=== PATIENT | female | born 1965 | race Asian ===

== ENCOUNTER 2020-08-22 13:38 | Emergency (ER) | payer OTHER ==
[~2020-08-22] VITALS: Ht 165.1 cm; Wt 68.0 kg
[2020-08-22 13:47] VITALS: TEMP 98.7
[2020-08-22 14:34] LABS: PLATELET COUNT 126 K/uL (152-353)
[2020-08-22 14:36] LABS: POTASSIUM 3.5 mmol/L (3.6-5.2)
[2020-08-22 15:37] VITALS: BP 125/71
== END 2020-08-22 15:37 | disposition home or self-care (01) ==
LOC: ED 13:38
PROVIDERS: Hospitalist
DX: R19.7 Diarrhea, unspecified (principal); K52.89 Other specified noninfective gastroenteritis and colitis
CPT/HCPCS: 36415; 80053; 82150; 83690; 85027; 96360; 96375; 99284; J2405